=== PATIENT | female | born 1965 | race Caucasian/White ===

== ENCOUNTER 2016-10-15 23:59 | Observation (INO) | payer BC, MEDICAID, OTHER ==
[2016-10-16] VITALS: BMI 28.8
--- NOTE | 2016-10-16 01:11 | ED PDOC ---
Arrival/HPI - General Chief Complaint: Syncope Time Seen by Provider: 10/16/16 00:39 Historian: Patient - History of Present Illness Narrative History of Present Illness (Text): 10/16/16 01:11 Edu Antonio is a 51 year old female, whose past medical history includes hypertension, who presents to the ED accompanied by family status post syncopal episode tonight. Daughter states patient was at home when she had a syncopal episode witnessed by her . states patient was unconscious for about 10 minutes and patient reports she is unable to recall the incident. Patient now complaining of nausea and intermittent headache. Patient denies any vision changes, focal neurological deficits, speech changes, fever, chills, chest pain, shortness of breath, vomiting, diarrhea, urinary symptoms, back pain , neck pain, headache, dizziness, or any other complaints. PMD: Dr. Titus Carbone Time/Duration: Other (tonight) Symptom Onset: Sudden Activities at Onset: Rest, Light Context: Home Past Medical History - Provider Review Nursing Documentation Reviewed: Yes - Infectious Disease Hx of Infectious Diseases: None - Past Medical History Past Medical History: No Previous - Cardiac Hx Hypertension: Yes - Hematological/Oncological Hx Anemia: Yes - Psychiatric Hx Substance Use: No - Surgical History Hx Cholecystectomy: Yes Hx Hysterectomy: Yes - Anesthesia Hx Anesthesia: Yes Hx Anesthesia Reactions: No Hx Malignant Hyperthermia: No Family/Social History - Physician Review Nursing Documentation Reviewed: Yes Family/Social History: No Known Family HX Smoking Status: Never Smoked Hx Alcohol Use: No Hx Substance Use: No Allergies/Home Meds Allergies/Adverse Reactions: Allergies No Known Allergies Allergy (Verified 10/08/13 20:24) Home Medications: Home Meds Medication Instructions Recorded Confirmed Hydrochlorothiazide [Microzide] 1 tab PO DAILY 10/16/16 10/16/16 Review of Systems - Physician Review All systems were reviewed & negative as marked: Yes - Review of Systems Constitutional: Normal. absent: Fevers Eyes: Normal. absent: Vision Changes ENT: Normal Respiratory: Normal. absent: SOB, Cough Cardiovascular: Syncope. absent: Chest Pain Gastrointestinal: Nausea. absent: Vomiting Genitourinary Female: Normal. absent: Dysuria, Frequency, Hematuria, Urine Output Changes Musculoskeletal: Normal. absent: Back Pain, Neck Pain Skin: Normal. absent: Rash Neurological: Headache. absent: Dizziness, Focal Weakness, Speech Changes Endocrine: Normal Hemo/Lymphatic: Normal Psychiatric: Normal Physical Exam Vital Signs Reviewed: Yes Vital Signs Pulse Resp BP Pulse Ox 10/16/16 03:18 63 16 126/69 98 10/16/16 00:59 59 L 18 129/78 98 Temperature: Afebrile Blood Pressure: Normal Pulse: Regular Respiratory Rate: Normal Appearance: Positive for: Well-Appearing, Non-Toxic, Comfortable Pain Distress: None Mental Status: Positive for: Alert and Oriented X 3 - Systems Exam Head: Present: Atraumatic, Normocephalic Pupils: Present: PERRL Extroacular Muscles: Present: EOMI Conjunctiva: Present: Normal Ears: Present: Normal, NORMAL TM, Normal Canal. No: Erythema, TM Bulging, Fluid , TM Perf Mouth: Present: Moist Mucous Membranes Neck: Present: Normal Range of Motion. No: Meningeal Signs, MIDLINE TENDERNESS , Paraspinal Tenderness Respiratory/Chest: Present: Clear to Auscultation, Good Air Exchange. No: Respiratory Distress, Accessory Muscle Use Cardiovascular: Present: Regular Rate and Rhythm, Normal S1, S2. No: Murmurs Abdomen: Present: Normal Bowel Sounds. No: Tenderness, Distention, Peritoneal Signs Upper Extremity: Present: Normal Inspection. No: Cyanosis, Edema Lower Extremity: Present: Normal Inspection. No: Edema Neurological: Present: GCS=15, CN II-XII Intact, Speech Normal, Motor Func Grossly Intact, Normal Sensory Function, Normal Cerebellar Funct, Memory Normal Skin: Present: Warm, Dry, Normal Color. No: Rashes Psychiatric: Present: Alert, Oriented x 3, Normal Insight, Normal Concentration Medical Decision Making ED Course and Treatment: 10/16/16 01:11 Impression: 51 year old female complaining of a syncopal episode tonight with headache and nausea. Differential Diagnosis include but are not limited to: syncope Plan: -- CT Head w/o contrast -- EKG -- Labs, cardiac enzymes -- Reassess and disposition Progress Notes: Reviewed EKG, NSR at [address]-segment elevations or depressions, no T-wave inversions, normal intervals. 10/16/16 03:01 Reviewed radiology, Chest X-ray shows no active disease. CT Head shows: No evidence of acute intracranial hemorrhage. No midline shift or hydrocephalus.If symptoms persist, correlation with MRI is advised. 10/16/16 03:[address] Carbone, who is aware and agrees with plan. Accepts pt in to his service. Pt will go to Telemetry observation for syncope. Requests Dr. Tapia and Dr. Anderson on consult. Pt is no acute distress. Discussed results and hospital observation plan with pt and family, who is aware and verbalizes understanding. - Lab Interpretations Lab Results: 10/16/16 01:30 10/16/16 01:30 Lab Results 10/16/16 01:30: WBC 6.1, RBC 4.92, Hgb 12.4, Hct 38.5, MCV 78.3 L, MCH 25.2, MCHC 32.2, RDW 14.2, Plt Count 200, MPV 10.7, PT 10.9, INR 1.01, APTT 28.0, Sodium 135, Potassium 3.9, Chloride 95 L, Carbon Dioxide 30, Anion Gap 14, BUN 18, Creatinine 0.8, Est GFR ( Amer) > 60, Est GFR (Non-Af Amer) > 60, Random Glucose 111 H, Calcium 9.7, Total Bilirubin 0.7, AST 38, ALT 20, Alkaline Phosphatase 62, Lactate Dehydrogenase 468, Total Creatine Kinase 66, Troponin I < 0.01, Total Protein 8.1, Albumin 4.2, Globulin 3.9, Albumin/ Globulin Ratio 1.1 I have reviewed the lab results: Yes - RAD Interpretation Narrative RAD Interpretations (Text): Chest X-ray shows no active disease. CT Head shows: Brain: Unremarkable. No hemorrhage. No significant white matter disease. No edema. Ventricles: Unremarkable. No ventriculomegaly. Bones/joints: Unremarkable. No acute fracture. Soft tissues: Unremarkable. Sinuses: Unremarkable as visualized. No acute sinusitis. Mastoid air cells: Unremarkable as visualized. No mastoid effusion. IMPRESSION: No evidence of acute intracranial hemorrhage. No midline shift or hydrocephalus.If symptoms persist, correlation with MRI is advised. Radiology Orders: 10/16/16 01:14 HEAD W/O CONTRAST [CT] Stat 10/16/16 01:15 CHEST PORTABLE [RAD] Stat Limb Driver: ED Physician, Radiologist - EKG Interpretation Interpreted by ED Physician: Yes Type: 12 lead EKG - Medication Orders Current Medication Orders: Discontinued Medications Oxycodone/Acetaminophen (Percocet 5/325 Mg Tab) 1 tab PO STAT STA Stop: 10/16/16 02:31 Last Admin: 10/16/16 02:50 Dose: 1 TAB - Scribe Statement The provider has reviewed the documentation as recorded by the Willow Garduno Provider Attestation: All medical record entries made by the Shrutiibolga were at my direction and personally dictated by me. I have reviewed the chart and agree that the record accurately reflects my personal performance of the history, physical exam, medical decision making, and the department course for this patient. I have also personally directed, reviewed, and agree with the discharge instructions and disposition. Disposition/Present on Arrival - Present on Arrival Any Indicators Present on Arrival: No History of DVT/PE: No History of Uncontrolled Diabetes: No Urinary Catheter: No History of Decub. Ulcer: No History Surgical Site Infection Following: None - Disposition Have Diagnosis and Disposition been Completed?: Yes Diagnosis: Syncope Disposition: HOSPITALIZED Disposition Time: 03:26 Patient Problems: Current Active Problems Problem Status Diagnosed Syncope Acute Condition: STABLE
[2016-10-16 01:42] LABS: HEMATOCRIT 38.5 % (36.0-48.0); MEAN CELL VOLUME 78.3 fL (80.0-105.0); MEAN CORPUSCULAR HEMOGLOBIN 25.2 pg (25.0-35.0); MEAN CORPUSCULAR HGB CONC 32.2 g/dl (31.0-37.0); MEAN PLATELET VOLUME 10.7 fl (7.0-11.0); RED CELL DISTRIBUTION WIDTH 14.2 % (11.5-14.5); WHITE BLOOD COUNT 6.1 10^3/ul (4.5-11.0)
[2016-10-16 01:56] LABS: INR 1.01 (0.93-1.08)
[2016-10-16 02:05] LABS: ALB/GLOB RATIO 1.1 (1.1-1.8); ALKALINE PHOSPHATASE 62 U/L (38-133); ALT/SGPT 20 U/L (7-56); AST/SGOT 38 U/L (15-39); BILIRUBIN,TOTAL 0.7 mg/dL (0.2-1.3); BLOOD UREA NITROGEN 18 mg/dL (7-21); CALCIUM 9.7 mg/dL (8.4-10.5); CARBON DIOXIDE 30 mmol/L (21-33); CHLORIDE 95 mmol/L (98-107); GFR AFRICAN-AMERICAN > 60; GLUCOSE,RANDOM 111 mg/dL (70-110); POTASSIUM 3.9 mmol/L (3.6-5.0); SODIUM 135 mmol/L (132-148); TOTAL PROTEIN 8.1 g/dL (5.8-8.3)
[2016-10-16] MEDS ORDERED: Oxycodone/Acetaminophen 5/325 mg Tab PO STA (02:30)
[2016-10-16 02:35] LABS: TROPONIN I < 0.01 ng/mL
[2016-10-16] MEDS ORDERED: Influenza Vaccine 45 MCG/0.5 ml IM ONE (04:25)
[2016-10-16] MEDS ORDERED: Pneumococcal 23-Valent Vaccine IM ONE (04:25)
--- NOTE | 2016-10-16 04:32 | CP.PCM.PN ---
Subjective - Date & Time of Evaluation Date of Evaluation: 10/16/16 Time of Evaluation: 04:30 - Subjective Subjective: Seen at bedside because she complained of headache.04/01. States that she has history of migraines. Has little nausea also.States that Ibuprofen does not help her. Received percocet at 2:50 AM , did not help. This 51 year old woman came in with syncope. Has PMH of HTN, anemia, migraines, back pains.cholecystectomy, hystrectomy. Objective - Vital Signs/Intake and Output Vital Signs (last 24 hours): Temp Pulse Resp BP Pulse Ox 58 L 20 126/69 98 10/16/16 04:07 10/16/16 04:07 10/16/16 03:18 10/16/16 03:18 - Medications Medications: Current Medications Influenza Virus Vaccine (Fluvirin) 45 mcg IM .ONCE ONE Stop: 10/16/16 04:26 Pneumococcal Polyvalent Vaccine (Pneumovax 23 Vaccine) 0.5 ml IM .ONCE ONE Stop: 10/16/16 04:26 - Labs Labs: PT 10.9 Seconds (9.9-11.8) 10/16/16 01:30 INR 1.01 (0.93-1.08) 10/16/16 01:30 APTT 28.0 Seconds (23.7-30.8) 10/16/16 01:30 - Constitutional Appears: Well, No Acute Distress - Head Exam Head Exam: ATRAUMATIC, NORMAL INSPECTION, NORMOCEPHALIC - Eye Exam Eye Exam: Normal appearance - ENT Exam ENT Exam: Normal External Ear Exam - Neck Exam Neck Exam: Normal Inspection - Respiratory Exam Respiratory Exam: NORMAL BREATHING PATTERN - Cardiovascular Exam Cardiovascular Exam: absent: JVD - GI/Abdominal Exam GI & Abdominal Exam: absent: Distended - Rectal Exam Rectal Exam: Deferred - Extremities Exam Extremities Exam: Normal Inspection - Back Exam Back Exam: NORMAL INSPECTION - Neurological Exam Neurological Exam: Alert, CN II-XII Intact, Oriented x3 - Psychiatric Exam Psychiatric exam: Normal Affect, Normal Mood - Skin Skin Exam: Normal Color Assessment and Plan - Assessment and Plan (Free Text) Assessment: A/P:Migraines. Syncope. HTN. Anemia. Ultram 50 mg PO STAT. Continue mamagement.
--- NOTE | 2016-10-16 08:14 | CT ---
PROCEDURE: CT HEAD WITHOUT CONTRAST. HISTORY: syncope COMPARISON: None available. TECHNIQUE: Axial computed tomography images were obtained through the head/brain without intravenous contrast. Radiation dose: Total exam DLP = 629.06 mGy-cm. FINDINGS: HEMORRHAGE: No intracranial hemorrhage. BRAIN: No mass effect or edema. No atrophy or chronic microvascular ischemic changes. VENTRICLES: Unremarkable. No hydrocephalus. CALVARIUM: Unremarkable. PARANASAL SINUSES: Unremarkable as visualized. No significant inflammatory changes. MASTOID AIR CELLS: Unremarkable as visualized. No inflammatory changes. OTHER FINDINGS: None. IMPRESSION: Unremarkable CT examination of the head. No intracranial mass, hemorrhage or evidence of acute infarct. Preliminary interpretation of this examination was reported by [facility] at 2:53 a.m. on 10/16/2016. There is concurrence of this report with the preliminary interpretation.
--- NOTE | 2016-10-16 08:21 | RAD ---
HISTORY: fever COMPARISON: 08/27/2012 FINDINGS: LUNGS: No active pulmonary disease. PLEURA: No significant pleural effusion identified, no pneumothorax apparent. CARDIOVASCULAR: Normal. OSSEOUS STRUCTURES: No significant abnormalities. VISUALIZED UPPER ABDOMEN: Normal. OTHER FINDINGS: None. IMPRESSION: No active disease.
--- NOTE | 2016-10-16 11:45 | CARD ---
APPROVED REPORT EKG Measurement Heart [id number] FL 180P57 [id number] <Conclusion> Normal sinus rhythm Normal ECG
[2016-10-16] MEDS: Sodium Chloride 0.9% 1,000 ML IV SCH ×2 (12:54→23:00)
--- NOTE | 2016-10-16 13:30 | CARD ---
APPROVED REPORT EXAM: Two-dimensional and M-mode echocardiogram with Doppler and color Doppler. INDICATION Syncope 2D DIMENSIONS Left Atrium (2D)3.7 (1.6-4.0cm)IVSd1.1 (0.7-1.1cm) LVDd4.4 (3.9-5.9cm)PWd1.0 (0.7-1.1cm) LVDs2.8 (2.5-4.0cm)FS (%) 37.0 % LVEF (%)67.2 (>50%) M-Mode DIMENSIONS Aortic Root2.10 (2.2-3.7cm)Aortic Cusp Exc.1.50 (1.5-2.0cm) Aortic Valve AoV Peak Pylbifjg855.0cm/Vince Peak GR.14mmHg Mitral Valve MV E Afukpvrr69.7cm/sMV A Wwhwgdxi22.5cm/sE/A ratio1.3 TDI E/Lateral E'0.0E/Medial E'0.0 Tricuspid Valve TR Peak Teszghli572im/sRAP [id number] Peak Gr.28mmHg [id number] LEFT VENTRICLE The left ventricle is normal size. There is normal left ventricular wall thickness. The left ventricular function is normal.EF-65% There is normal LV segmental wall motion. The left ventricular diastolic function is normal. No left ventricle thrombus noted on this study. There is no ventricular septal defect visualized. There is no left ventricular aneurysm. There is no mass noted in the left ventricle. RIGHT VENTRICLE The right ventricle is normal size. There is normal right ventricular wall thickness. The right ventricular systolic function is normal. ATRIA The left atrium size is normal. The right atrium size is normal. The interatrial septum is intact with no evidence for an atrial septal defect. AORTIC VALVE The aortic valve is normal in structure. No aortic regurgitation is present. There is no aortic valvular stenosis. There is no aortic valvular vegetation. MITRAL VALVE The mitral valve is thickened but opens well. Mitral regurgitation is trace. There is no mitral valve stenosis. There is no evidence of mitral valve prolapse. TRICUSPID VALVE The tricuspid valve leaflets are thickened , but open well. There is moderate tricuspid regurgitation.RVSP-38 mmof hg. There is no tricuspid valve stenosis. There is no tricuspid valve prolapse or vegetation. PULMONIC VALVE The pulmonary valve is normal in structure. There is trace pulmonic valvular regurgitation. There is no pulmonic valvular stenosis. GREAT VESSELS The aortic root is normal in size. The ascending aorta is normal in size. The pulmonary artery is normal. The IVC is normal in size and collapses >50% with inspiration. PERICARDIAL EFFUSION There is no pleural effusion. There is no pericardial effusion. <Conclusion> Normal chamber Size. EF-65% Trace MR Moderate TR. RVSP-38 mmof Hg.
[2016-10-16 13:53] LABS: ALB/GLOB RATIO 1.1 (1.1-1.8); ALKALINE PHOSPHATASE 60 U/L (38-133); ALT/SGPT 18 U/L (7-56); AST/SGOT 34 U/L (15-39); BILIRUBIN,TOTAL 0.5 mg/dL (0.2-1.3); BLOOD UREA NITROGEN 17 mg/dL (7-21); CALCIUM 9.6 mg/dL (8.4-10.5); CARBON DIOXIDE 31 mmol/L (21-33); CHLORIDE 96 mmol/L (95-110); CHOLESTEROL 203 mg/dL (130-200); GFR AFRICAN-AMERICAN > 60; GLUCOSE,RANDOM 112 mg/dL (70-110); POTASSIUM 3.8 mmol/L (3.6-5.0); SODIUM 140 mmol/L (132-148); TOTAL PROTEIN 7.7 g/dL (5.8-8.3)
--- NOTE | 2016-10-16 14:16 | CON ---
DATE: 10/16/2016 REASON FOR CONSULTATION: Syncope. BRIEF CLINICAL HISTORY: This is a 51-year-old female with a past medical history of hypertension, re cently a month or two, started hydrochlorothiazide 12.5 mg daily. She took last 4 days. The patient said that she did not have breakfast, went for shopping and then came back. Coming to the bathroom she passed out and stayed on the floor for 10 minutes. Probably she lost consciousness for 10 minute s as per daughter and the patient. Daughter is a nursing home assistant administrator. The patient was witnessed by her . Denies any chest pain, denies shortness of breath, denies any palpitation. The patient is schoolteacher. She said 2 years ago she had the same episode happen and was taking to [facility] extensive workup which was negative, including neurologist was seen and was told it was negative. PAST MEDICAL HISTORY: Significant for recently diagnosed hypertension though patient runs usually bl ood pressure low side, but recently had 155 so patient started on hydrochlorothiazide. She took only 4 days of hydrochlorothiazide and then she passed out. PAST SURGICAL HISTORY: Significant for tonsillitis at younger age, history of cholecystectomy, histo ry of hysterectomy in 02/2016. SOCIAL HISTORY: Denies any smoking. Denies any history of alcohol abuse. FAMILY HISTORY: Significant for coronary artery disease. REVIEW OF SYSTEMS: As per HPI. CURRENT MEDICATIONS: The patient is taking hydrochlorothiazide, ibuprofen, Protonix and Drisdol. ALLERGIES: APPLE, GETS ANAPHYLACTIC REACTION PER CHART. REVIEW OF SYSTEMS: As per HPI. PHYSICAL EXAMINATION: VITAL SIGNS: Temperature afebrile, heart rate 54, blood pressure 94/60. HEENT: PERRLA. Extraocular muscles intact. NECK: Supple. No carotid bruits. No thyromegaly auscultation. HEART: S1, S2 regular. ABDOMEN: Soft. EXTREMITIES: Clubbing and cyanosis negative. BLOOD WORKUP: WBC 6.____, hemoglobin 12.____, hematocrit 38.5, platelet count 200. Chemistry shows sodium ____, potassium 3.9, chloride 95, carbon dioxide 30, anion gap of 14, BUN 18, creatinine 0.8, random sugar 111. Troponin 0.01. IMPRESSION: Possibly orthostatic hypotension because patient was not eating and drinking since last night. Went for the shopping, did not eat the breakfast, and then she passed out. RECOMMENDATION: Will do orthostatic hypotension, echo to rule out any structural heart disease and g andrew IV fluid. The patient is running low blood pressure. Will follow with you. Will do a lipid pro file, TSH, hemoglobin A1c. Consider stress test as outpatient. Thank you, Dr. Carbone, for providing the opportunity in taking care of the patient. Carolyn Tapia MD cc:Huy Carbone MD [id number] TT: 10/16/2016 12:46:37 Confirmation # [id number] Dictation # [id number] mn
[2016-10-16] MEDS ORDERED: Apap-Butalbital-Caffeine 325-50-40mg Tab PO STA (17:47)
--- NOTE | 2016-10-16 19:01 | CON ---
DATE: 10/16/2016 CHIEF COMPLAINT: Syncope. HISTORY OF PRESENT ILLNESS: A 51-year-old woman with past medical history of chronic headaches, aver aging 4-6 per month in addition with hypertension, recently started on hydrochlorothiazide 12.5 mg p. o. daily she took for the last 4 days. Apparently, she did not have any breakfast on 10/15/2016 and went for shopping and then came back and went to the bathroom and she passed out. She stayed on the floor for about 10 minutes. She probably lost consciousness questionably for 10 minutes as per [address] ter and patient. She says that she has been sleeping well, but she has a lot of stresses. She is a schoolteacher. She said a similar episode happened 2 years ago where she was taken to [facility], extensive workup was negative including the neurological assessment at that time. Currently, she denies any focal complaints at this time. She has a diffuse occipital headache radiating through out the head without any scintillating scotomas, but has some positive photophobia and some nausea at times. She does not take any abortive or preventive treatment for her headaches. She uses a comput er quite often, spends at least 2 hours nonstop without taking any breaks when she is doing work as a schoolteacher. She denies any paresthesias in the extremities. No focal weakness in the extremitie s at this time. CT head showed no acute intracranial abnormality. PAST MEDICAL HISTORY: Recently diagnosed with hypertension and was put on hydrochlorothiazide. She took her hydrochlorothiazide for only 4 days and had passed out. PAST SURGICAL HISTORY: at younger age. History of cholecystectomy and history of hysterectomy in 02/2016. FAMILY HISTORY: Significant for coronary artery disease. REVIEW OF SYSTEMS: A 14-point review of systems is negative except for the HPI. ALLERGIES: APPLES, GETS ANAPHYLACTIC REACTION. CURRENT MEDICATIONS: Reviewed via nurse's reconciliation sheet. PHYSICAL EXAMINATION: VITAL SIGNS: Temperature of 98.3, pulse rate of 61, blood pressure of 90/62, respiratory rate of 20, blood pressure of 90/62 mmHg, oxygen saturation 98% on room air. GENERAL: The patient is sitting up in bed in no acute distress. HEENT: Atraumatic, normocephalic. PERRLA. Extraocular muscles intact. NECK: Supple. No JVD, no adenopathy noted. LUNGS: Clear to auscultation. No adventitious sounds. HEART: S1, S2, normal rate and rhythm. No murmurs, rubs, or gallops. ABDOMEN: Soft, nontender, nondistended. Bowel sounds are present. EXTREMITIES: No clubbing, no cyanosis. Peripheral pulses 2+ felt bilaterally. NEUROLOGIC: The patient is alert, oriented to person, place, month and year. Speech is fluent witho ut any errors. Cranial nerves II through XII are intact. MOTOR: Moves all extremities equally. No pronator drift seen. Strength is 5/5 in both upper and lo wer extremities. SENSORY: Light touch, pinprick, proprioception, vibration intact. DTRs are 2+ throughout. COORDINATION: Dxfvby-ro-hphn intact. GAIT: Deferred for now. LABORATORIES: Sodium is 140, potassium 3.8, chloride of 96, carbon dioxide 31, BUN of 17, creatinine 0.8. Random glucose of 112. Cholesterol is 203, LDL is 130, HDL is 44. ASSESSMENT AND PLAN: This is a 51-year-old woman newly diagnosed with past medical history of hypert ension on hydrochlorothiazide for the past few days with history of a syncopal episode in the past, w ith a normal echocardiogram and has diffuse occipital headache pressure type with some photophobia wi thout any paresthesias in the extremities. I was called to evaluate. Her syncopal episode is most l ikely a vasovagal event and secondary to low blood pressure, likely from the hydrochlorothiazide, giv en that her baseline is already on the lower side causing transient cerebral hypoperfusion to the bra in. She also has occipital headaches which are more of tension-based headaches causing migraine type of phenomena. At this time, I recommend: 1. Hold off on any antihypertensives. 2. Hydrate throughout the day. 3. Aspirin 81 mg p.o. daily and can take Fioricet 1 tab q. 4 hours p.r.n. for the acute onset of hea dache. 4. She will follow up with me in the office for further management of her headaches. She is clinica lly stable from my neurological standpoint for discharge. Thank you for this consult. Johan Anderson MD cc: [id number] TT: 10/16/2016 19:00:08 Confirmation # [id number] Dictation # [id number] mn
[2016-10-17 00:31] VITALS: RESP 18
[2016-10-17 05:33] VITALS: O2SAT 96
[2016-10-17 06:19] LABS: ADD MANUAL DIFF? NO
[2016-10-17 06:43] LABS: BASO # 0.08 K/mm3 (0.0-2.0); BASO % 1.6 % (0.0-3.0); EOS # 0.1 (0.0-0.7); EOS % 1.4 % (1.5-5.0); GRAN % 45.5 % (50.0-68.0); HEMATOCRIT 38.5 % (36.0-48.0); LYMPH # 2.4 (1.2-3.4); LYMPH % 46.5 % (22.0-35.0); MEAN CELL VOLUME 79.4 fL (80.0-105.0); MEAN CORPUSCULAR HEMOGLOBIN 24.9 pg (25.0-35.0); MEAN CORPUSCULAR HGB CONC 31.4 g/dl (31.0-37.0); MEAN PLATELET VOLUME 10.8 fl (7.0-11.0); MONO # 0.3 (0.1-0.6); PLATELET COUNT 198 10^3/uL (120.0-450.0); RED CELL DISTRIBUTION WIDTH 14.4 % (11.5-14.5); WHITE BLOOD COUNT 5.1 10^3/ul (4.5-11.0)
[2016-10-17 06:52] LABS: MAGNESIUM 2.3 mg/dL (1.7-2.2)
--- NOTE | 2016-10-17 09:06 | MRI ---
PROCEDURE: MRI BRAIN WITHOUT CONTRAST HISTORY: Syncope COMPARISON: Noncontrast head CT from 10/16/2016 TECHNIQUE: Multiplanar, multisequence MR images of the brain were obtained without intravenous contrast enhancement. FINDINGS: HEMORRHAGE: None DWI: No evidence of an acute or early subacute infarction. BRAIN PARENCHYMA: Quinones-white matter differentiation is preserved. There is no mass, mass effect or abnormal extra-axial fluid collection. The midline sagittal structures are normal. VENTRICLES: The ventricles are normal in size, shape and configuration. CRANIUM: There is normal signal bone marrow signal pattern ORBITS: Grossly unremarkable. PARANASAL SINUSES/MASTOIDS: Clear VASCULAR SYSTEM: There are normal signal voids in the larger intracranial arteries OTHER FINDINGS: None. IMPRESSION: No acute intracranial abnormality.
[2016-10-17] MEDS ORDERED: Pantoprazole 40 mg EC Tab PO SCH (10:00)
[2016-10-17 10:28] LABS: BLOOD UREA NITROGEN 14 mg/dL (7-21); CALCIUM 9.3 mg/dL (8.4-10.5); CARBON DIOXIDE 28 mmol/L (21-33); CHLORIDE 101 mmol/L (98-107); GFR AFRICAN-AMERICAN > 60; GLUCOSE,RANDOM 105 mg/dL (70-110); SODIUM 138 mmol/L (132-148)
--- NOTE | 2016-10-17 10:50 | PN ---
DATE: 10/17/2016 REASON FOR CONSULTATION AND FOLLOWUP: Syncope. BRIEF CLINICAL HISTORY: This is a 51-year-old female with a past medical history significant for hyp ertension, who recently a month or 2 started hydrochlorothiazide 12.5 mg daily did not eat a whole da y, went for the shopping, came back and went to the bathroom. When coming out of the bathroom, she p assed out. The patient underwent yesterday echocardiography that revealed normal chambers, ejection fraction 60-65%, trace MR, moderate TR, RV systolic pressure of 38. Blood pressure 90s. Orthostatic was negative. IV fluid was given. The pressure back up to 110. Denies any chest pain, denies any dizziness. Denies any headache. PHYSICAL EXAMINATION: VITAL SIGNS: Temperature afebrile, heart rate 60, blood pressure 109/64. HEENT: PERRLA. Extraocular muscles intact. NECK: Supple. No carotid bruits. No thyromegaly. CHEST: Clear to auscultation. HEART: S1, S2 regular. ABDOMEN: Soft. EXTREMITIES: Clubbing and cyanosis negative. LABORATORY DATA: Blood workup as follows: WBC 5.1, hemoglobin 12.1, hematocrit 38.5, platelet count 198. Chemistry shows sodium 140, potassium 3.8, chloride 96, carbon dioxide 31, anion gap of 17, BU N 17, creatinine 0.8, phosphorus 4, magnesium 2.3. Triglycerides 143. Cholesterol 203, LDL 130, HDL 44. TSH 1.18. IMPRESSION: Status post syncope, normal left ventricular function, trace mitral regurgitation, moder ate tricuspid regurgitation, right ventricular systolic pressure 38. MRI of the brain is negative. There is no acute finding. No orthostatic. Probably a syncopal episode secondary to volume depletio n with diuretics and the patient is not eating, drinking. No evidence of arrhythmia noted while the patient is on telemetry monitoring. RECOMMENDATION: 1. Discontinue telemetry. 2. Continue neuro followup. The patient has been scheduled a stress test as an outpatient in 1-2 we eks, Myoview stress test as outpatient. Discussed with the patient, discussed with the patient's margarito gomez who is a nursing school student. Told them the patient will be scheduled for a stress test as an outpatient. Thank you, Dr. Carbone, for providing us the opportunity in taking care of the patient. We will disco ntinue telemetry. Yesterday, potassium was supplemented. We will repeat SMA-7 today. We will disco ntinue telemetry. Carolyn Tapia MD cc: [id number] TT: 10/17/2016 10:50:14 Confirmation # [id number] Dictation # [id number] tn
[2016-10-17 12:07] VITALS: PULSE 63; TEMP 98.1
--- NOTE | 2016-10-17 12:53 | HP ---
CHIEF COMPLAINT: A 51-year-old female who came in with syncope. HISTORY OF PRESENT ILLNESS: The patient seen on telemetry floor. She complained of headache. The p armand has chronic history of headache she said for 6 years. She had an MRI in the past. Similar he adache, but more frequent and more intense happened in just the last one week. She also had a histor y of recently high blood pressure and was taking hydrochlorothiazide. The patient was doing okay. S he went shopping, came back, took a shower. She fell on the floor, loss all consciousness for 10 min utes according to her, and then she regained her consciousness fully. She denied any history of seiz ure activity or any cardiac disease in the past or any neurological problem in the past. She did hav e similar symptoms a couple years ago. She went to [place]; all workup was negative. The patient denied any fever, any chills, any nausea except day of admission she felt a little nauseous. No fev er, no other complaints. No history of cardiac disease. The patient usually is active and has no ot her complaints except for musculoskeletal symptoms, hip joint pain, back pain; otherwise negative. PAST MEDICAL HISTORY: 1. As I mentioned, chronic headache which usually starts from the back of her neck down to her area which she always has. 2. Recently started on Microzide 12.5 mg for high blood pressure. 3. Chronic arthritis, hip bursitis, obesity, otherwise negative. ALLERGIES: APPLE CAUSED ANAPHYLACTIC SHOCK. REVIEW OF SYSTEMS: She complained always of back pain, hip pain, headaches. SOCIAL HISTORY: She is remarried. She has 3 girls I believe. Otherwise, no smoking, no drugs, no a lcohol. PHYSICAL EXAMINATION: VITAL SIGNS: The patient had a temperature of 98, heart rate 59. When she came in, blood pressure w as 90/62 with no orthostatic changes. Respiratory rate 20. HEAD AND NECK: No JVD, no thyromegaly. CHEST: Clear, good air entry. CARDIAC: First and second sounds are normal. ABDOMEN: Soft, nontender. EXTREMITIES: No edema. NEUROLOGIC: Normal. LABORATORY DATA: White count 6.1, hemoglobin 12.4, hematocrit 38.5, platelets 200. Sodium 135, pota ssium 3.9, chloride 95, bicarbonate 30, BUN 18, creatinine 0.8, blood sugar 111, calcium 9.7. Liver function test is normal. Troponin is negative. Albumin and globulin were normal with normal ratio. Also cholesterol was done and LDL was 130. IMPRESSION AND PLAN: 1. Syncope, etiology unclear, could be due to low blood pressure, could be due to seizure activity o r cardiac etiology, although her age group of 51 is low risk for cardiac disease. Had a similar epis ode with negative workup. My expectation of workup will be negative. However, we will get a cardiol ogy consult (Dr. Tapia) and neurology consult (Dr. Anderson). Troponin is negative. EKG was in normal range. Will get echocardiogram and further workup up to the infrastructure director. She is on telemetry. The re is no arrhythmia. 2. Headache, which is chronic in nature. Could be migraine headaches. We will advise the patient t o decrease screen time at home to like an hour at one time or maybe, because of her headaches which c ould be migraine, will get an MRI of the brain. Will follow up neurology consult. Ibuprofen does he lp a little; seems better with Fioricet. 3. Hypertension. Blood pressure is in the 90s. Will discontinue the hydrochlorothiazide. The luis ent advised not to take it again and advise we will continue IV fluids and will monitor her blood pre ssure, and will follow up clinically. Huy Carbone MD cc: [id number] TT: 10/17/2016 12:53:02 renny
[2016-10-17 13:26] VITALS: BP 112/60
--- NOTE | 2016-10-18 10:41 | DS ---
The patient came in with syncope. Cardiac and neurological workup came negative. She had echocardio gram, which was normal. She had a CAT scan and MRI of the brain, was normal. The patient also compl ained of headache, chronic neck pain. She was given Fioricet, improved her headache and she was hemo dynamically stable. She does not have any orthostatic, but her blood pressure was in the 90s. The p atient advised not to take any hydrochlorothiazide, watch her salt intake and her blood pressure now is within normal range. She has no chest pain, no short of breath, no palpitation. She was on telem etry and there is no arrhythmia. PHYSICAL EXAMINATION: VITAL SIGNS: Temperature 98.1, heart rate 63, blood pressure 118/83, respirations 18, saturation 96% on room air. HEAD AND NECK: Normal. No JVD, no thyromegaly. CHEST: Clear, good air entry. CARDIAC: First sound, second sound normal. ABDOMEN: Soft, nontender. EXTREMITIES: No edema. NEUROLOGIC: Normal. Her white count 5.1, hemoglobin 12.1, hematocrit 38.5, platelets 198. Her chemistry showed sodium 13 8, potassium 4, chloride 101, bicarbonate 28, BUN 14, creatinine 0.7. The patient also had hemoglobi n A1c 6.1, which is normal. She has calcium level 9.3, which is normal. Magnesium 2.3, which is a l ittle bit high. Phosphorus is normal. Her LDL cholesterol is 130, her HDL is 44. TSH 1.18. DISCHARGE DIAGNOSES: 1. Syncope, etiology unclear. Will follow up with the neurologist, Dr. Anderson, as outpatient. 2. Possible hypotension. The patient seems stable now. Advised to stop any hydrochlorothiazide. 3. Chronic headache, possibly migraine. The patient advised to cut down screen time to less than 2 hours interrupted and proper sleeping hygiene and patient given Fioricet p.r.n. for headache and foll ow up with the neuro consult, Dr. Anderson. 4. The patient also has chronic neck pain, chronic osteoarthritis. Follow up as outpatient. 5. Obesity with history of bilateral bursitis. PLAN: Discharge the patient home, follow up as outpatient. She continue vitamin D, Protonix, and Mo chuck p.r.n., Fioricet p.r.n. for headache. Discontinue hydrochlorothiazide 12.5 mg 1 a day. Maciej benavidez p.o. intake, exercise and see as outpatient. Huy Carbone MD cc: [id number] TT: 10/18/2016 10:40:42 en
== END 2016-10-17 14:25 | disposition home or self-care (01) ==
LOC: ED 23:59 → ERH 10-16 03:22 → 2RNO 10-16 03:57
PROVIDERS: ADMIT Internal Medicine; ATTEND Internal Medicine
DX: R55 Syncope and collapse (principal); G44.209 Tension-type headache, unspecified, not intractable; G43.909 Migraine, unspecified, not intractable, without status migrainosus; M70.70 Other bursitis of hip, unspecified hip; I10 Essential (primary) hypertension; D64.9 Anemia, unspecified; M54.9 Dorsalgia, unspecified; I08.1 Rheumatic disorders of both mitral and tricuspid valves; G89.29 Other chronic pain; M54.2 Cervicalgia; M19.90 Unspecified osteoarthritis, unspecified site; Z68.31 Body mass index [BMI] 31.0-31.9, adult; E66.9 Obesity, unspecified; Z82.49 Family history of ischemic heart disease and other diseases of the circulatory system
CPT/HCPCS: 36415; 70450; 70551; 71010; 80048; 80053; 80061; 82550; 83036; 83615; 83735; 84100; 84443; 84484; 85025; 85027; 85610; 85730; 93005; 93306; 99285; G0378; J7040